=== PATIENT | female | born 1945 | race Two or more races ===

== ENCOUNTER 2016-12-06 07:22 | Inpatient (IN) | payer MEDICARE, BC ==
[~2016-12-06] VITALS: Ht 165.1 cm; Wt 69.9 kg
[2016-12-06] VITALS (24 sets, daily range): BP systolic 76–150; BP diastolic 47–78
[2016-12-06] MEDS ORDERED: IV NS 0.9% 1,000 ML BAG IV ONE ×2 (07:30→08:30)
--- NOTE | 2016-12-06 07:38 | NUR ---
Cleaned the patient at BS, changed the diaper and bed linen. Redness noted on sacral area.
--- NOTE | 2016-12-06 07:40 | NUR ---
[id number] FROM HOME: CHILLS, WEAKNESS, LOWER ABDOMINAL PAIN AND BACK PAIN. NOTED NEPHROSTOMY TUBE, COLOSTOMY BAG, URBAN PICC LINE. SON AT BS. MD AT BS FOR EVAL. NOTED TACHY. ON DIAPER NOTED SOILED, PT CLEANED AND CHANGED. SAFETY AND COMFORT MEASURES PROVIDED. WILL MONITOR.
--- NOTE | 2016-12-06 07:45 | NUR ---
UNABLE TOP DRAW BLOOD FROM PICC LINE- NOTED 2 PORTS. LAB TECHS AT FOR BLOOD DRAW. URINE SAMPLE OBTAINED FROM NEPHROSTOMY TUBE. XRAY DONE. MEDICATED ORDERED.
[2016-12-06] MEDS ORDERED: ENAL20TA PO (08:23)
[2016-12-06] MEDS ORDERED: ATOR40TA PO (08:23)
[2016-12-06] MEDS ORDERED: ATEN25TA PO (08:23)
[2016-12-06] MEDS ORDERED: SERT50TA PO (08:23)
[2016-12-06 08:28] LABS: HEMATOCRIT 32 % (33-45); HEMOGLOBIN 10.5 g/dL (11.5-14.8); LYMPHOCYTES # (AUTO) 0.5 /CMM (0.8-4.8); MEAN CORPUSCULAR HEMOGLOBIN 27 PG (26.0-33.0); MEAN CORPUSCULAR HGB CONC 33 g/dl (31.0-36.0); MEAN CORPUSCULAR VOLUME 82 fL (82-100); MONOCYTES # (AUTO) 0.9 /CMM (0.1-1.30); MONOCYTES % (AUTO) 3.4 % (2.0-12.0); NEUTROPHILS # (AUTO) 24.6 /CMM (1.8-8.9); NEUTROPHILS % (AUTO) 94.6 % (43.0-81.0); PLATELET COUNT (AUTO) 331 /CMM (150-450); RDW COEFFICIENT OF VARIATION 16.8 (11.5-15.0); RED BLOOD CELL COUNT(AUTO) 3.84 MIL/uL (4.0-5.2)
[2016-12-06] MEDS ORDERED: LEVOFLOXACIN 750 MG /D5W 150ML 150 ML IV ONE ×2 (08:30→08:34)
[2016-12-06 08:35] LABS: APPEARANCE,URINE TURBID (CLEAR); BILIRUBIN,URINE NEGATIVE (NEGATIVE); BLOOD, URINE 3+ Ery/uL (NEGATIVE); COLOR,URINE YELLOW (YELLOW); KETONES,URINE NEGATIVE (NEGATIVE); LEUKOCYTE ESTERASE ,URINE 3+ (NEGATIVE); NITRITE, URINE NEGATIVE (NEGATIVE); PH,URINE 5.5 (5.0-8.0); PROTEIN,URINE 2+ mg/dl (NEGATIVE); UGLUCOSE NEGATIVE (NEGATIVE); UROBILINOGEN,URINE 0.2 EU/dL (0.2)
[2016-12-06 08:37] LABS: CALCIUM, SERUM 9.8 mg/dL (8.5-10.1); CARBON DIOXIDE 18 mmol/L (21-32); CHLORIDE 98 mmol/L (98-107); CREATININE 1.3 mg/dL (0.6-1.3); GLUCOSE 194 mg/dL (74-106); POTASSIUM 4.2 mmol/L (3.5-5.1); SODIUM SERUM 130 mmol/L (136-145); UREA NITROGEN, BLOOD 55 mg/dL (7-18)
[2016-12-06 08:42] LABS: ALANINE AMINOTRANSFERASE 159 U/L (12-78); ALBUMIN 2.1 g/dL (3.4-5.0); ALKALINE PHOSPHATASE 308 U/L (46-116); ASPARTATE AMINOTRANSFERASE 75 U/L (15-37); BILIRUBIN,DIRECT 0.4 mg/dL (0.0-0.2); BILIRUBIN,TOTAL 1.2 mg/dL (0.2-1.0); TOTAL PROTEIN, SERUM 7.4 g/dL (6.4-8.2)
--- NOTE | 2016-12-06 08:42 | NUR ---
panel on-call paged
[2016-12-06 08:45] LABS: TROPONIN I 0.023 ng/mL (0.00-0.056)
[2016-12-06 08:50] LABS: INR 0.99 (0.87-1.13); PROTHROMBIN TIME 10.3 SECS (9.5-12.7)
[2016-12-06 08:52] LABS: BACTERIA,URINE Few /HPF (None Seen); RBC,URINE TOO NUMEROUS TO COUN /HPF (0-2); SQUAMOUS EPITHELIAL CELL,UR Few /HPF (None Seen); WBC,URINE TOO NUMEROUS TO COUN /HPF (0-3)
[2016-12-06] MEDS ORDERED: VANCOMYCIN 1 GM in IV D5W 250 ML IV ONE (09:00)
[2016-12-06] MEDS ORDERED: GENTAMICIN 80 MG in IV D5W 50 ML IV ONE (09:00)
[2016-12-06] MEDS ORDERED: NOREPINEPHRINE 8 MG in IV D5W 500 ML IV ONE (09:00)
[2016-12-06 09:06] LABS: BAND % (MANUAL) 5 % (0.0-5.0); LYMPHOCYTES % (MANUAL) 4 % (16-48); MONOCYTES % (MANUAL) 3 % (0-11.0); NEUTROPHILS % (MANUAL) 88 (42-76)
--- NOTE | 2016-12-06 09:15 | NUR ---
ORDERS CARRIED OUT. FAMILY AT BS AND UPDATED WITH POC.
[2016-12-06] MEDS ORDERED: MORPHINE SULFATE INJ 2 MG/ML DISP.SYRIN ONE (10:26)
[2016-12-06] MEDS ORDERED: MORPHINE SULFATE INJ 2 MG/ML DISP.SYRIN IV ONE (10:30)
--- NOTE | 2016-12-06 10:44 | NUR ---
REPORT GIVEN TO BEVERLEY KENT FOR ICU 252
--- NOTE | 2016-12-06 11:45 | NUR ---
icu initial note received report from sommer rosen, pt was received a/o x4, able to make needs known, able to follow commands, pt was placed on bedside monitor showing sr 70's, pt is on ra, sating well, no s/s of resp.distress or sob noted at this time, pt has sae picc line that she came with, flushing well, running levo @7mcg/min, rfa #18g,sl, c/d/i/patent, flushing well, no s/s of infection/ infiltration noted at this time, pt has colostomy, bag changed, pt has lfet nephrotomy, dressing changes, draining milky urine, pt is noted with multiple skin issues, photos taken and in chart, all orders put in, pt verbal that she wants to be full code, son paulino kim is dpoa, , all safety measures in place at all times, call light within easy reach, will monitor pt closely for changes.
[2016-12-06] MEDS ORDERED: Z GUARD REMEDY 4 OZ OINT TP PRN (12:30)
[2016-12-06] MEDS ORDERED: IV NS 0.9% 1,000 ML IV PRN ×2 (12:56→13:00)
--- NOTE | 2016-12-06 12:56 | NUR ---
icu note informed alma espitia pt is on floor, awaiting orders
[2016-12-06] MEDS ORDERED: ACETAMINOPHEN 325 MG TABLET PO PRN (13:00)
[2016-12-06] MEDS ORDERED: NOREPINEPHRINE 8 MG in IV D5W 500 ML IV PRN (13:00)
[2016-12-06] MEDS ORDERED: ENOXAPARIN SODIUM 40 MG/0.4 ML DISP.SYRIN SQ SCH (13:00)
[2016-12-06] MEDS ORDERED: FEE PK DOSING 1 MIN EA MC ONE (13:25)
[2016-12-06] MEDS: ENOXAPARIN SODIUM 40 MG/0.4 ML DISP.SYRIN SQ SCH (13:38)
[2016-12-06] MEDS: MORPHINE SULFATE INJ 2 MG/ML DISP.SYRIN IV PRN ×2 (13:38→22:40)
--- NOTE | 2016-12-06 13:44 | NUR ---
icu note alma espitia at bedside, told to call son paulino phone number given, all new orders received, all questions and concerns answered
--- NOTE | 2016-12-06 13:52 | NUR ---
icu note called alma espitia for clarification on levo order, waiting for call back
[2016-12-06 14:06] LABS: GAMMA GLUTAMYL TRANSFERASE 154 U/L (5-85)
[2016-12-06] MEDS: MEROPENEM 1 G in IV NS 0.9% 100 ML IV SCH (14:14)
--- NOTE | 2016-12-06 14:47 | NUR ---
ICU NOTE SPOKE WITH DURGA SON, PT IS ON TPN, WILL BRING IN LABEL, YONIS AVERY AWARE, ALL ORDERS ACK AND CARRIED OUT
[2016-12-06] MEDS ORDERED: TPN/PPN PER PHARMACY IV PRN (15:30)
[2016-12-06] MEDS: IV NS 0.9% 1,000 ML IV PRN (16:21)
[2016-12-06] MEDS ORDERED: LORAZEPAM INJ 2 MG/ML VIAL IV PRN (17:00)
[2016-12-06] MEDS ORDERED: INSULIN REGULAR, HUMAN 100 UNIT/ML 3 ML VIAL SQ PRN (17:30)
[2016-12-06] MEDS ORDERED: DEXTROSE 50%-WATER 50 ML DISP.SYRIN IV PRN (17:30)
[2016-12-06] MEDS: BLOOD SUGAR DIAGNOSTIC 1 EACH STRIP IN SCH ×2 (17:49→23:15)
[2016-12-06 17:54] LABS: CALCIUM, SERUM 8.2 mg/dL (8.5-10.1); CREATININE 1.2 mg/dL (0.6-1.3); POTASSIUM 3.6 mmol/L (3.5-5.1)
--- NOTE | 2016-12-06 17:54 | NUR ---
ICU NOTE SON BROUGHT TPN, NOTIFIED PHARMACY, [facility] PLACED, PT KEPT CLEAN AND DRY
[2016-12-06 17:58] LABS: MAGNESIUM 1.5 mg/dL (1.8-2.4); PHOSPHORUS 3.5 mg/dL (2.5-4.9)
[2016-12-06] MEDS ORDERED: TPN BAG #1 IV SCH ×7 (18:30)
[2016-12-06] MEDS ORDERED: FEE TPN 1 MIN EA MC ONE (18:32)
--- NOTE | 2016-12-06 18:46 | NUR ---
icu note received call from pharmacy about iv fluids, accu and tpn, will endorse maintenance technician 2nd shift, start tpn @ 50m/hr, decrease ns to 25ml/hr, check blood sugar 4 hrs after tpn started, informed them of mag 1.5, mag will be added to tpn
[2016-12-06] MEDS: ATENOLOL 25 MG TABLET PO SCH (21:00)
[2016-12-06] MEDS: ENALAPRIL MALEATE (10 MG) 10 MG TABLET PO SCH (21:00)
[2016-12-06] MEDS ORDERED: ZOLPIDEM TARTRATE 5 MG TABLET PO PRN (22:00)
--- NOTE | 2016-12-06 22:40 | NUR ---
PRODUCT SAFETY CONSULTANT DF PT MEDICATED WITH MORPHINE 2MG IVP PRN FOR GENERALIZED PAIN 2ND MED HX OF CA. VSS. A/OX4. FAMILY AT BEDSIDE. PT/FAMILY VERBALIZE GOOD UNDERSTANDING REGARDING POC.
[2016-12-06] MEDS ORDERED: BLOOD SUGAR DIAGNOSTIC 1 EACH STRIP IN ONE (23:00)
[2016-12-07] VITALS (32 sets, daily range): BP systolic 84–140; BP diastolic 49–81
[2016-12-07] MEDS: VANCOMYCIN 0.75 GM in IV D5W 250 ML IV SCH ×2 (02:10→20:20)
[2016-12-07] MEDS: MEROPENEM 1 G in IV NS 0.9% 100 ML IV SCH ×2 (02:10→14:05)
[2016-12-07 05:03] LABS: BASOPHILS % (AUTO) 0.1 % (0.0-2.0); EOSINOPHILS % (AUTO) 0.3 % (0.0-6.0); HEMATOCRIT 26 % (33-45); HEMOGLOBIN 8.2 g/dL (11.5-14.8); LYMPHOCYTES # (AUTO) 0.8 /CMM (0.8-4.8); LYMPHOCYTES % (AUTO) 5.8 % (20.0-44.0); MEAN CORPUSCULAR HEMOGLOBIN 27 PG (26.0-33.0); MEAN CORPUSCULAR HGB CONC 32 g/dl (31.0-36.0); MEAN CORPUSCULAR VOLUME 83 fL (82-100); NEUTROPHILS # (AUTO) 12.3 /CMM (1.8-8.9); NEUTROPHILS % (AUTO) 86.8 % (43.0-81.0); PLATELET COUNT (AUTO) 249 /CMM (150-450); RDW COEFFICIENT OF VARIATION 17.4 (11.5-15.0); RED BLOOD CELL COUNT(AUTO) 3.09 MIL/uL (4.0-5.2); WHITE BLOOD COUNT (AUTO) 14.2 K/uL (4.3-11.0)
[2016-12-07 05:27] LABS: THYROID STIMULATING HORMONE 4.339 uIU/mL (0.358-3.74)
[2016-12-07 05:29] LABS: ALBUMIN 1.6 g/dL (3.4-5.0); BILIRUBIN,TOTAL 0.5 mg/dL (0.2-1.0); CREATININE 1.1 mg/dL (0.6-1.3); MAGNESIUM 1.8 mg/dL (1.8-2.4); POTASSIUM 3.3 mmol/L (3.5-5.1); TOTAL PROTEIN, SERUM 5.7 g/dL (6.4-8.2)
[2016-12-07] MEDS: BLOOD SUGAR DIAGNOSTIC 1 EACH STRIP IN SCH ×3 (06:00→17:51)
[2016-12-07] MEDS: MORPHINE SULFATE INJ 2 MG/ML DISP.SYRIN IV PRN ×2 (06:06→17:43)
--- NOTE | 2016-12-07 06:06 | NUR ---
FREELANCE WRITER DF PT C/O GENERALIZED PAIN 5/10 REQUESTING MORPHINE 2MG IVP. PT REFUSED AM CARE.LINEN CLEAN AND DRY. PT WILL ADVISE STAFF WHEN READY FOR AM CARE.
--- NOTE | 2016-12-07 06:07 | NUR ---
EQUIPMENT RECORDS SUPERVISOR DF PT BP OF 108/69 PT WAS 1 MCG OF LEVOPHED. LEVOPHED TITRATED OFF, WILL MONITOR.
--- NOTE | 2016-12-07 07:45 | NUR ---
ICU/RN - Initial Notes Received pt in bed awake and alert x3. States relief of abdominal pain, as PM nurse gave Morphine 2mg IVP. On room air, with no acute respiratory distress. SR 65 on tele monitor. PICC line noted on left upper arm, with TPN and IVF infusing well. Pt currently off Levophed at this time, will monitor BP. Safety and comfort measures in place. Will continue to monitor pt closely.
[2016-12-07] MEDS: ATENOLOL 25 MG TABLET PO SCH (08:06)
[2016-12-07] MEDS: ENALAPRIL MALEATE (10 MG) 10 MG TABLET PO SCH (08:06)
[2016-12-07] MEDS: ATORVASTATIN 40 MG TABLET PO SCH ×2 (08:16→08:26)
[2016-12-07] MEDS: SERTRALINE HCL 50 MG TABLET PO SCH ×2 (08:16→08:26)
[2016-12-07] MEDS: ENOXAPARIN SODIUM 40 MG/0.4 ML DISP.SYRIN SQ SCH (08:17)
--- NOTE | 2016-12-07 08:30 | NUR ---
ICU/RN - Notes PO medications not administered as pt unable to take PO. Pt states "I haven't been able to take pills for weeks, I don't take them anymore." Will notify and verify with MD regarding PO medications.
--- NOTE | 2016-12-07 08:58 | NUR ---
WOUND CARE CONSULT: PT PRESENTS WITH STAGE 2 ULCER TO SACRUM AND RASH TO RT SIDE OF BACK AND HIP, PRESENT ON ADMISSION. NEPHROSTOMY TUBE NOTED. DEFER TO MD FOR RASH AND NEPHROSTOMY TUBE. PT ON FIRST STEP MATTRESS. ALL SKIN PROTECTION AND WOUND RECOMMENDATIONS DISCUSSED WITH NURSING STAFF. PT IS INCONTINENT. SKIN TO BE KEPT CLEAN AND DRY. ALL SKIN PROTECTION MEASURES IN PLACE. WILL SEE PRN. MD IN AGREEMENT WITH PLAN OF CARE. Addendum: 12/07/16 at 0900 by JEANETTE EDEN WNDNU Amended: Links added.
[2016-12-07] MEDS ORDERED: HYDROGEL DRESSING 90 GM TUBE TP PRN (09:00)
[2016-12-07] MEDS: HYDROGEL DRESSING 90 GM TUBE TP SCH (09:52)
[2016-12-07] MEDS ORDERED: VANCOMYCIN 0.75 GM in IV D5W 250 ML IV SCH (10:00)
[2016-12-07] MEDS ORDERED: MAGNESIUM IV SCH ×5 (12:00)
[2016-12-07] MEDS ORDERED: TPN ADDITIVES IV SCH ×10 (12:00)
[2016-12-07] MEDS ORDERED: SODIUM CHLORIDE IV SCH ×5 (12:00)
[2016-12-07] MEDS ORDERED: TPN IV SCH ×5 (12:00)
[2016-12-07] MEDS ORDERED: [UNRECOGNIZED DRUG - OTHER] IV SCH ×5 (12:00)
--- NOTE | 2016-12-07 12:00 | NUR ---
ICU/RN - Notes Alvarez catheter inserted as ordered with miguelina colored cloudy urine draining to gravity.
[2016-12-07] MEDS: HYDROCORTISONE 1% CREAM 28.35 GM TUBE TP SCH (16:07)
[2016-12-07] MEDS: IV NS 0.9% 1,000 ML IV PRN (16:14)
[2016-12-07] MEDS ORDERED: ACETAMINOPHEN 650 MG/SUPP.RECT RC PRN (16:30)
--- NOTE | 2016-12-07 17:25 | NUR ---
ICU/RN - Notes Pt noted with what seems like watery stool coming out of urethra. Per patient, this is something unusual since pt has colostomy for stool drainage. Dr Gutierrez made aware that stool found coming out of urethra and possible fistula as pt has history of abdominal fistulas. Dr Gutierrez also made aware of hematuria and cloudy foul smelling urine. Pt pending Surgery evaluation. Dr Matt Parmar called and made aware and will come see patient in the AM per MD.
--- NOTE | 2016-12-07 17:43 | NUR ---
ICU/RN - Notes Pt complains of abdominal pain on pain scale 8 out of 10. Administered Morphine 2mg IVP as ordered for PRN pain. Will reassess pain accordingly.
--- NOTE | 2016-12-07 19:00 | NUR ---
ICU/RN - Notes Pt states relief of abdominal pain. Urine collected from becerril catheter and sent to lab. All needs met and attended. Endorsed to night nurse for continuity of care.
--- NOTE | 2016-12-07 20:00 | NUR ---
MULTI CARE TECHNICIAN - Received pt in bed awake and alert x3. On room air, with no acute respiratory distress. SR on tele monitor. PICC line noted on left upper arm, with TPN and IVF infusing well. Pt currently off Levophed at this time, will monitor BP. Safety and comfort measures in place. Will continue to monitor pt closely.
[2016-12-07 21:36] LABS: APPEARANCE,URINE CLOUDY (CLEAR); BILIRUBIN,URINE NEGATIVE (NEGATIVE); BLOOD, URINE 3+ Ery/uL (NEGATIVE); COLOR,URINE AMBER (YELLOW); KETONES,URINE NEGATIVE (NEGATIVE); LEUKOCYTE ESTERASE ,URINE 3+ (NEGATIVE); NITRITE, URINE NEGATIVE (NEGATIVE); PROTEIN,URINE 2+ mg/dl (NEGATIVE); UGLUCOSE NEGATIVE (NEGATIVE); UROBILINOGEN,URINE 0.2 EU/dL (0.2)
[2016-12-07 21:53] LABS: BACTERIA,URINE Few /HPF (None Seen); RBC,URINE 51-80 /HPF (0-2); SQUAMOUS EPITHELIAL CELL,UR Few /HPF (None Seen); WBC,URINE 21-50 /HPF (0-3)
[2016-12-08] VITALS (36 sets, daily range): BP systolic 86–142; BP diastolic 47–76
[2016-12-08] MEDS: BLOOD SUGAR DIAGNOSTIC 1 EACH STRIP IN SCH ×5 (00:26→23:11)
[2016-12-08] MEDS: ONDANSETRON HCL/PF 4 MG/2 ML VIAL IVP PRN (00:28)
[2016-12-08] MEDS ORDERED: TPN BAG #3 IV SCH ×7 (01:00)
[2016-12-08] MEDS: MEROPENEM 1 G in IV NS 0.9% 100 ML IV SCH ×2 (02:01→14:46)
[2016-12-08 04:57] LABS: CALCIUM, SERUM 9.5 mg/dL (8.5-10.1); MAGNESIUM 1.9 mg/dL (1.8-2.4); PHOSPHORUS 3.1 mg/dL (2.5-4.9); POTASSIUM 3.8 mmol/L (3.5-5.1)
[2016-12-08 05:08] LABS: BASOPHILS % (AUTO) 0.3 % (0.0-2.0); EOSINOPHILS # (AUTO) 0.1 /CMM (0.0-0.7); HEMATOCRIT 26 % (33-45); HEMOGLOBIN 8.3 g/dL (11.5-14.8); LYMPHOCYTES # (AUTO) 0.7 /CMM (0.8-4.8); LYMPHOCYTES % (AUTO) 8.5 % (20.0-44.0); MEAN CORPUSCULAR HEMOGLOBIN 27 PG (26.0-33.0); MEAN CORPUSCULAR HGB CONC 32 g/dl (31.0-36.0); MEAN CORPUSCULAR VOLUME 84 fL (82-100); MONOCYTES # (AUTO) 0.6 /CMM (0.1-1.30); NEUTROPHILS # (AUTO) 7.3 /CMM (1.8-8.9); NEUTROPHILS % (AUTO) 83.2 % (43.0-81.0); PLATELET COUNT (AUTO) 254 /CMM (150-450); RDW COEFFICIENT OF VARIATION 17.7 (11.5-15.0); RED BLOOD CELL COUNT(AUTO) 3.06 MIL/uL (4.0-5.2); WHITE BLOOD COUNT (AUTO) 8.8 K/uL (4.3-11.0)
--- NOTE | 2016-12-08 06:20 | NUR ---
PT HAD LARGE BM, FROM WHAT APPEARS TO BE VAGINA, NO STOOL FROM COLOSTOMY AND STOOL WAS ON TOP OF VAGINA, AND URINE SOAKED BED, POSSIBLY FROM LEFT NEPHROSTOMY
[2016-12-08] MEDS: MORPHINE SULFATE INJ 2 MG/ML DISP.SYRIN IV PRN ×2 (07:20→19:38)
--- NOTE | 2016-12-08 08:00 | NUR ---
ICU/RN INITIAL NOTES,AM RECEIVED REPORT FROM NIGHT NURSE. PT ALERT, AWAKE, ORIENTED. FOLLOWS COMMANDS. ON ROOM AIR, NO DISTRESS NOTED. SINUS ON TELE. VSS. PT AWAITING SURGERY CONSULT, WILL FOLLOW UP. NOBLES IN PLACE DRAINING YELLOW URINE. PT ALSO HAS COLOSTOMY, INTACT, CLEAN. LEFT NEPHROSTOMY IN PLACE, SOME REDNESS AROUND IT NOTED, MD NOTIFIED. ALL NEEDS WILL BE MET, SAFETY MEASURES TAKEN, BED IN LOW POSITION, SIDE RAILS UP, CALL LIGHT WITHIN REACH. WILL CONTINUE CARE.
[2016-12-08] MEDS: HYDROCORTISONE 1% CREAM 28.35 GM TUBE TP SCH ×2 (09:02→17:25)
[2016-12-08] MEDS: HYDROGEL DRESSING 90 GM TUBE TP SCH (09:02)
[2016-12-08] MEDS: ENOXAPARIN SODIUM 40 MG/0.4 ML DISP.SYRIN SQ SCH (09:04)
--- NOTE | 2016-12-08 10:30 | NUR ---
ICU/RN: PT SEEN BY PHYSICAL THERAPY. PT MOD ASSIST, ABLE TO SIT UP IN BED, UNABLE TO DUE MORE DUE TO DISCOMFORT FROM NOBLES AND VAGINAL IRRITATION. WILL CONTINUE TO BE SEEN BY PT.
[2016-12-08] MEDS ORDERED: TPN BAG #4 IV SCH ×6 (11:00)
[2016-12-08] MEDS ORDERED: TPN ABG IV PRN ×8 (11:00)
--- NOTE | 2016-12-08 12:00 | NUR ---
ICU/RN: MD ROUNDS PT SEEN AND ASSESSED BY DR.SAM KOROMA. CONCERNS ADDRESSED, CONSULT ORDERED FOR SURGERY TO SEE PT AND FOLLOW UP. PT CONTINUES TO BE ON TPN AND LIPIDS WILL BE ADDED.
[2016-12-08] MEDS: VANCOMYCIN 0.75 GM in IV D5W 250 ML IV SCH ×2 (12:33→23:12)
[2016-12-08] MEDS: FAT EMULSION 20% 500 ML in PREMIX 1 EA IV SCH (14:47)
[2016-12-08] MEDS: PANTOPRAZOLE 40 MG VIAL IV SCH (18:20)
--- NOTE | 2016-12-08 18:20 | NUR ---
ICU/RN CONSULTS PT SEEN AND ASSESSED BY DR. NG, ID, NO NEW ORDERS AT THIS TIME. PT SEEN AND ASSESSED BY LINN SURGERY SPREADER OPERATOR AUTOMATIC, ORDERS RECEIVED FOR CT ABD AND PELVIS WITH CONTRAST VIA IV/RECTUM/OSTOMY. INFORMED HER NO OUTPUT FROM OSTOMY AND THAT PT HAS FECAL MATTER COMING FORM VAGINA. FURTHER STUDIES WILL BE DONE NEEDED. WILL CONTINUE CARE.
--- NOTE | 2016-12-08 18:56 | NUR ---
ICU/RN ENDING NOTES,AM REPORT WILL BE ENDORSED TO NIGHT NURSE FOR CONTINUATION OF CARE. ALL NEEDS MET, SAFETY MEASURES TAKEN. PT CONTINUES TO BE ON ROOM AIR, NO DISTRESS OR SOB NOTED. SINUS ONT TELE. TPN/LIPIDS /IV FLUIDS INFUSING ORDERED. PICC LINE PATENT AND INTACT, NO S/S OF INFECTION OR INFILTRATION NOTED. ALL NEEDS MET, SAFETY MEASURES TAKEN, BED IN LOW POSITION, SIDE RIALS UP, CALL LIGHT WITHIN REACH. FAMILY AT BEDSIDE. BED BATH GIVEN, LINENS CHANGED, TURNED AND REPOSITIONED.
--- NOTE | 2016-12-08 19:26 | NUR ---
ICU/RN: CONSENT IN CHART, PT TO BE NPO AFTER 399, NO ICE CHIPS
--- NOTE | 2016-12-08 19:30 | NUR ---
CAT SKINNER: RECEIVED PT A/O X3. ON ROOM AIR WT NO LABORED BREATHING NOTED. C/O ABDOMINAL PAIN (10/07). WILL ADMINISTER MORPHINE ORDERED. SR ON LASTER HAND WT OCCASIONAL PVCs AND PACs AND HR IN THE 90s. AFEBRILE. BP WNL. LEFT SIDE NEPHROSTOMY AND F/C PATENT AND INTACT DRAINING GERARDO COLORED URINE. COLOSTOMY INTACT AND PATENT WT NO STOOL. NO FECAL LEAK ON VAGINA AT THIS TIME. REPOSITIONED FOR COMFORT. SAFETY PRECAUTION NOTED. CALL LIGHT WITHIN REACH.
[2016-12-08] MEDS: IV NS 0.9% 1,000 ML IV PRN (19:51)
--- NOTE | 2016-12-08 20:10 | NUR ---
MAINTENANCE SUPERVISOR ELECTRICAL: REASSESSED PAIN LEVEL AFTER MORPHINE WAS GIVEN WT GOOD EFFECT (0/10). WILL CONTINUE TO MONITOR.
[2016-12-09] VITALS (20 sets, daily range): BP systolic 90–149; BP diastolic 54–95
--- NOTE | 2016-12-09 00:30 | NUR ---
REINFORCING STEEL WORKER WIRE MESH: EYES CLOSED, ABLE TO OPEN EYES WHEN TOUCHED OR CALLED BY NAME. NO ACUTE DISTRESS, NO C/O PAIN. CONTINUE ON TPN AT 75ML/HR, LIPID AT 20ML/HR AND NS AT 25ML/HR WT NO COMPLICATIONS NOTED ON URBAN PICC LINE. VS WITHIN HER BASELINE. WILL CONTINUE TO MONITOR.
[2016-12-09] MEDS: MEROPENEM 1 G in IV NS 0.9% 100 ML IV SCH ×2 (02:06→14:13)
[2016-12-09] MEDS: MORPHINE SULFATE INJ 2 MG/ML DISP.SYRIN IV PRN ×3 (04:39→21:20)
[2016-12-09 05:48] LABS: CREATININE 0.9 mg/dL (0.6-1.3); MAGNESIUM 1.7 mg/dL (1.8-2.4); PHOSPHORUS 2.8 mg/dL (2.5-4.9)
[2016-12-09] MEDS: BLOOD SUGAR DIAGNOSTIC 1 EACH STRIP IN SCH ×4 (06:11→23:39)
--- NOTE | 2016-12-09 06:15 | NUR ---
CHUCKING LATHE OPERATOR: NO SIGNIFICANT JESSICA DURING THE SHIFT. REMAINED A/O X 3. STARTED NPO WITHOUT CHIPS AT [address] WT CONTRAST TODAY. BED BATH GIVEN AND TOLERATED FAIRLY. STILL WT GREENISH ONTIVEROS COLORED STOOL LEAK FROM VAGINA IN MINIMAL AMT. GOOD RADHA CARE RENDERED. BLOOD URTZX=450 WT INSULIN COVERAGE ORDERED. VS WITHIN HER BASELINE. SAFETY PRECAUTION NOTED AT ALL TIMES.
--- NOTE | 2016-12-09 07:45 | NUR ---
ICU/RN - Initial Notes Received pt in bed awake and alert x3. Complains of abdominal discomfort, refuses pain medication at this time. On room air, with no acute respiratory distress. SR 65 on tele monitor. PICC line noted on left upper arm, with TPN, Lipids and IVF infusing well. Alvarez catheter draining urine to gravity. Nephrostomy to left flank draining urine to gravity. Left lower quadrant colostomy , no stool. Safety and comfort measures in place. Will continue to monitor pt closely.
[2016-12-09 08:05] LABS: EOSINOPHILS # (AUTO) 0.1 /CMM (0.0-0.7); EOSINOPHILS % (AUTO) 1.5 % (0.0-6.0); HEMATOCRIT 27 % (33-45); LYMPHOCYTES # (AUTO) 0.7 /CMM (0.8-4.8); LYMPHOCYTES % (AUTO) 8.1 % (20.0-44.0); MEAN CORPUSCULAR HEMOGLOBIN 28 PG (26.0-33.0); MEAN CORPUSCULAR HGB CONC 34 g/dl (31.0-36.0); MEAN CORPUSCULAR VOLUME 82 fL (82-100); MONOCYTES # (AUTO) 0.6 /CMM (0.1-1.30); MONOCYTES % (AUTO) 6.4 % (2.0-12.0); NEUTROPHILS # (AUTO) 7.6 /CMM (1.8-8.9); PLATELET COUNT (AUTO) 282 /CMM (150-450); RDW COEFFICIENT OF VARIATION 16.8 (11.5-15.0); RED BLOOD CELL COUNT(AUTO) 3.24 MIL/uL (4.0-5.2); WHITE BLOOD COUNT (AUTO) 9.1 K/uL (4.3-11.0)
--- NOTE | 2016-12-09 08:42 | NUR ---
SOFT SHOE DANCER RN SPOKE TO DR. ESPINOZA'S INDUSTRIAL TECH INSTRUCTOR LINN. PER TRAVON PATIENT TO RECEIVE IV CONTRAST, CONTRAST THROUGH THE COLOSTOMY, AND THROUGH RECTUM AT THE SAME TIME DURING CT SCAN IN ORDER TO VISUALIZE THE FISTULA. RN CLARIFIED THE CT ORDER TO THE PL SQL PROGRAMMER. PER PL SQL PROGRAMMER, RADIOLOGIST WANTS TO SPEAK TO GENERAL SURGERY INDUSTRIAL TECH INSTRUCTOR TO CLARIFY THE CT ORDER WITH CONTRAST. RN PROVIDED THE PL SQL PROGRAMMER WITH CONTACT INFORMATION FOR INDUSTRIAL TECH INSTRUCTOR.
[2016-12-09] MEDS: HYDROGEL DRESSING 90 GM TUBE TP SCH (09:04)
[2016-12-09] MEDS: ENOXAPARIN SODIUM 40 MG/0.4 ML DISP.SYRIN SQ SCH (09:05)
[2016-12-09] MEDS: HYDROCORTISONE 1% CREAM 28.35 GM TUBE TP SCH ×2 (09:28→17:31)
[2016-12-09] MEDS ORDERED: MAGNESIUM IV SCH ×8 (10:00)
[2016-12-09] MEDS ORDERED: SODIUM CHLORIDE IV SCH ×8 (10:00)
[2016-12-09] MEDS ORDERED: POTASSIUM ACETATE IV SCH ×8 (10:00)
[2016-12-09] MEDS ORDERED: TPN BAG #6 IV PRN ×6 (10:00)
[2016-12-09] MEDS ORDERED: [UNRECOGNIZED DRUG - OTHER] IV SCH ×8 (10:00)
[2016-12-09] MEDS ORDERED: TPN BAG #7 IV PRN ×8 (10:00)
[2016-12-09] MEDS ORDERED: TPN ADDITIVES IV SCH ×8 (10:00)
[2016-12-09] MEDS ORDERED: TPN BAG #7 IV SCH ×8 (10:00)
[2016-12-09] MEDS ORDERED: DIATR MEGLU/DIATRIZOATE SODIUM 30 ML BOTTLE (GASTROGRAPHIN) ONE (10:06)
[2016-12-09] MEDS: Magnesium 1GM/D5W 100ML PREMIX 100 ML IV SCH ×2 (10:12→11:09)
[2016-12-09] MEDS: POTASSIUM CL. PREMIX PERIPHER. 50 ML IV SCH ×4 (10:12→13:12)
--- NOTE | 2016-12-09 11:05 | NUR ---
GAMBLING MONITOR RN SPOKE TO PATIENT AND FAMILY. PER PATIENT AND FAMILY THEY NEED FURTHER CLARIFICATION OF ABDOMINAL CT WITH CONTRAST ESPECIALLY REGARDING ADMINISTRATION OF PO CONTRAST THROUGH COLOSTOMY. PATIENT AND FAMILY REQUESTED TO SPEAK TO THE PRIMER INSERTING MACHINE OPERATOR PRIOR TO CT SCAN. RN PAGED PRIMER INSERTING MACHINE OPERATOR THROUGH EXCHANGE TO INFORM PATIENT AND FAMILY REQUEST FOR FURTHER CLARIFICATION. RN CALLED SURGERY PRIMER INSERTING MACHINE OPERATOR TRAVON THROUGH EXCHANGE.
--- NOTE | 2016-12-09 11:57 | NUR ---
VEST FINISHER RN PAGED DR. ESPINOZA'S SUPPLY TECHNICIAN TRAVON. RN CLARIFIED WITH TRAVON THAT PO CONTRAST TO BE GIVEN THROUGH COLOSTOMY BAG AND IF NOT ABSORBED PO CONTRAST TO BE INJECTED TO THE OSTOMY USING A SYRINGE. RN ATTEMPTED PLACING PO CONTRAST IN THE COLOSTOMY BAG FOR 5 MIN IN ORDER FOR IT TO BE ABSORBED. NO CONTRAST ABSORBED THROUGH THE COLOSTOMY. RN THEN ATTEMPTED TO INJECT THE CONTRAST USING A GT SYRINGE. UNABLE TO INJECT. CALLED TRAVON AGAIN AND INFORMED THE EVENT. RECEIVED ORDERS TO INSERT A NOBLES CATH TO THE SITE AND GENTLY FLUSH THE CONTRAST.
[2016-12-09] MEDS: VANCOMYCIN 0.75 GM in IV D5W 250 ML IV SCH (12:00)
--- NOTE | 2016-12-09 12:51 | NUR ---
PORTER SAMPLE CASE RN INSERTED A STERILE NOBLES CATH INTO PATIENT'S COLOSTOMY 4 CM DEEP. RN INJECTED TO CONTRAST TO THE COLOSTOMY. INJECTED SOLUTION NOTED TO COME OUT OF THE COLOSTOMY IMMEDIATELY AFTER INJECTION. UNABLE TO ADVANCE THE CATHETER ANY DEEPER SINCE PATIENT NOTED TO HAVE PAIN AND DISCOMFORT. PROCEDURE STOPPED. FAMILY AND PATIENT EDUCATION PROVIDED.
--- NOTE | 2016-12-09 14:47 | NUR ---
ICU/RN - Notes Pt complains of abdominal pain on pain scale 8 out of 10. Administered Morphine 2mg IVP as ordered for PRN pain. Comfort measures rendered. Will reassess pain accordingly.
--- NOTE | 2016-12-09 14:50 | NUR ---
SOLAR PHOTOVOLTAIC CREW LEAD RN SPOKE TO TRAVON WAITE. RN INFORMED INDUSTRIAL ENGINEERING MANAGER THAT ALL INJECTED PO CONTRAST TO THE COLOSTOMY IS PUSHED BACK OUT FROM THE OSTOMY IT IS PUSHED IN. INDUSTRIAL ENGINEERING MANAGER THEN INFORMED THE RN THAT PATIENT MAY GO TO CT AND HAVE THE PROCEDURE DONE WITH ONLY IV CONTRAST.
[2016-12-09] MEDS ORDERED: IV NS 0.9% 250 ML IV ONE (14:58)
[2016-12-09] MEDS ORDERED: CT SWABBABLE VALVE TRANS SET 1 EA INFUS.SET MC ONE (14:58)
[2016-12-09] MEDS ORDERED: IOHEXOL-300 100 ML VIAL IV ONE (14:58)
--- NOTE | 2016-12-09 15:30 | NUR ---
ICU/RN - Notes Pt taken to radiology for CT abdomen/pelvis with IV contrast via ACLS protocol. Pt returned in stable condition.
[2016-12-09] MEDS: PANTOPRAZOLE 40 MG VIAL IV SCH (17:34)
--- NOTE | 2016-12-09 18:40 | NUR ---
ICU/RN - Transfer Pt transferred to Telemetry 110-1 via ACLS protocol. Report given to YOLI Pedraza for continuity of care. All belongings taken with patient.
[2016-12-09] MEDS: METRONIDAZOLE 500MG/ NS 100ML 500 MG in PREMIX 1 EA IV SCH (18:52)
--- NOTE | 2016-12-09 19:30 | NUR ---
SHOE LASTER: RECEIVED PT A/O X3. ON R/A WT NO ACUTE DISTRESS. NO C/O PAIN AT THIS TIME. URBAN PICC LINE INFUSING TPN AT 75ML/HR AND FLAGYL IV WT NO COMPLICATIONS. SR ON MONITOR WT OCCASIONAL PACs AND PVCs. F/C AND LEFT FLANK NEPHROSTOMY PATENT AND INTACT DRAINING GERARDO COLORED URINE TO GRAVITY. COLOSTOMY BAG WT NO STOOL. NO FECAL STOOL LEAKS COMING FROM VAGINA AT THIS TIME. SAFETY PRECAUTION NOTED.
[2016-12-09] MEDS ORDERED: VANCOMYCIN 0.75 GM in IV D5W 250 ML IV SCH (21:00)
[2016-12-09] MEDS: IV NS 0.9% 1,000 ML IV PRN (21:00)
[2016-12-09] MEDS: LEVOFLOXACIN 750 MG /D5W 150ML 750 MG in PREMIX 1 EA IV SCH (21:01)
[2016-12-10] VITALS: BP 129/74
--- NOTE | 2016-12-10 00:30 | NUR ---
HAND COLLATOR: LOS DONE WT WNL RESULT. NO JESSICA. NO ACUTE DISTRESS, NO C/O PAIN AT THIS TIME.
[2016-12-10] MEDS: METRONIDAZOLE 500MG/ NS 100ML 500 MG in PREMIX 1 EA IV SCH ×3 (02:30→18:38)
[2016-12-10 04:00] VITALS: BP 145/82
[2016-12-10] MEDS: BLOOD SUGAR DIAGNOSTIC 1 EACH STRIP IN SCH ×4 (05:59→23:32)
[2016-12-10] MEDS: MORPHINE SULFATE INJ 2 MG/ML DISP.SYRIN IV PRN ×4 (06:28→23:17)
[2016-12-10 06:52] LABS: CALCIUM, SERUM 8.5 mg/dL (8.5-10.1); CREATININE 0.8 mg/dL (0.6-1.3); MAGNESIUM 2.1 mg/dL (1.8-2.4); PHOSPHORUS 3.3 mg/dL (2.5-4.9); POTASSIUM 3.4 mmol/L (3.5-5.1)
--- NOTE | 2016-12-10 07:00 | NUR ---
PIECE WORKER: PAIN MEDS GIVEN REQUESTED FOR ABDOMINAL PAIN (8/10) WT GOOD EFFECT (0/10). REMAINED A/O X3. ON R/A WT NO ACUTE DISTRESS. ALL NEEDS MET.
[2016-12-10 08:00] VITALS: BP 132/69
[2016-12-10] MEDS: HYDROGEL DRESSING 90 GM TUBE TP SCH (09:00)
[2016-12-10] MEDS: HYDROCORTISONE 1% CREAM 28.35 GM TUBE TP SCH ×2 (09:00→17:00)
[2016-12-10] MEDS: ENOXAPARIN SODIUM 40 MG/0.4 ML DISP.SYRIN SQ SCH (09:28)
[2016-12-10] MEDS: POTASSIUM CL. PREMIX PERIPHER. 50 ML IV SCH ×2 (09:32→11:20)
[2016-12-10 12:00] VITALS: BP 158/76
[2016-12-10] MEDS: FAT EMULSION 20% 500 ML in PREMIX 1 EA IV SCH (13:24)
[2016-12-10] MEDS ORDERED: TPN BAG #8 IV PRN ×6 (15:30)
[2016-12-10] MEDS: PANTOPRAZOLE 40 MG VIAL IV SCH (16:00)
[2016-12-10 17:14] VITALS: BP 142/84
[2016-12-10] MEDS ORDERED: FEE PK DOSING 1 MIN EA MC ONE (17:50)
[2016-12-10] MEDS: ONDANSETRON HCL/PF 4 MG/2 ML VIAL IVP PRN (18:14)
[2016-12-10] MEDS: VANCOMYCIN 0.75 GM in IV D5W 250 ML IV SCH (18:37)
--- NOTE | 2016-12-10 19:25 | NUR ---
JEWELRY SALES REPRESENTATIVE INITIAL NOTE RECEIVED IN NO ACUTE DISTRESS OR PAIN. SON AT BEDSIDE SPEAKING TO ONCOLOGIST. PT IS ALERT X4. ON TELE WITH ST PAC AND PVCS. COLOSTOMY, NEPHROSTOMY, F/C THAT ARE CLEAN DRY AND INTACT. URBAN PICC LINE AND RFA 18G THAT ARE CLEAN DRY AND INTACT. WILL CONTINUE TO MONITOR THE PT FOR ANY CHANGES. COMFORT AND SAFETY MEASURES TO BE ENSURED.
[2016-12-10 20:00] VITALS: BP 135/79
[2016-12-10] MEDS: LEVOFLOXACIN 750 MG /D5W 150ML 750 MG in PREMIX 1 EA IV SCH (20:27)
[2016-12-11] VITALS: BP 127/73
[2016-12-11] MEDS: METRONIDAZOLE 500MG/ NS 100ML 500 MG in PREMIX 1 EA IV SCH ×2 (01:17→09:02)
[2016-12-11 04:00] VITALS: BP_SYST 132; BP_SYST 136; BP_DIAS 78; BP_DIAS 83
[2016-12-11] MEDS: BLOOD SUGAR DIAGNOSTIC 1 EACH STRIP IN SCH ×2 (05:17→11:56)
[2016-12-11] MEDS: ONDANSETRON HCL/PF 4 MG/2 ML VIAL IVP PRN ×3 (05:18→11:57)
[2016-12-11] MEDS: VANCOMYCIN 0.75 GM in IV D5W 250 ML IV SCH (05:21)
[2016-12-11 06:48] LABS: CALCIUM, SERUM 8.4 mg/dL (8.5-10.1); CREATININE 0.8 mg/dL (0.6-1.3); MAGNESIUM 1.9 mg/dL (1.8-2.4); PHOSPHORUS 3.6 mg/dL (2.5-4.9)
[2016-12-11 06:54] LABS: IRON, SERUM 28 ug/dl (50-175); TOTAL IRON BINDING CAPACITY 154 ug/dl (250-450)
[2016-12-11 07:10] LABS: POTASSIUM 3.2 mmol/L (3.5-5.1)
--- NOTE | 2016-12-11 07:30 | NUR ---
CASINO BEVERAGE SERVER INITIAL NOTE RECEIVED PT IN BED NO ACUTE DISTRESS OR PAIN. . PT IS A/O X4. ON TELE WITH ST PAC AND PVCS. COLOSTOMY, NEPHROSTOMY, F/C CDI. URBAN PICC LINE AND RFA 18G CDI . WILL CONTINUE TO MONITOR THE PT FOR ANY CHANGES. COMFORT AND SAFETY MEASURES TO BE ENSURED.
[2016-12-11] MEDS ORDERED: TPN BAG #8 IV PRN ×6 (07:32)
[2016-12-11 08:00] VITALS: BP 134/77
[2016-12-11] MEDS ORDERED: TPN BAG #10 IV PRN ×6 (08:00)
[2016-12-11] MEDS ORDERED: TPN BAG #9 IV PRN ×8 (08:00)
[2016-12-11] MEDS ORDERED: VANCOMYCIN 1 GM in IV D5W 250 ML IV SCH (08:00)
[2016-12-11 08:35] LABS: FERRITIN 326 ng/mL (8-388)
[2016-12-11] MEDS: HYDROGEL DRESSING 90 GM TUBE TP SCH (09:00)
[2016-12-11] MEDS: HYDROCORTISONE 1% CREAM 28.35 GM TUBE TP SCH (09:00)
[2016-12-11] MEDS: ENOXAPARIN SODIUM 40 MG/0.4 ML DISP.SYRIN SQ SCH (09:02)
[2016-12-11] MEDS: PANTOPRAZOLE 40 MG VIAL IV SCH (09:06)
[2016-12-11] MEDS: MORPHINE SULFATE INJ 2 MG/ML DISP.SYRIN IV PRN (09:12)
[2016-12-11 12:00] VITALS: BP 142/81
[2016-12-11] MEDS ORDERED: LEVO500T15 PO (16:17)
--- NOTE | 2016-12-11 18:16 | NUR ---
pt discharged to [facility].pt in stable condition.no s/s of distress.all belongings and discharge instructions provided to patient.
[2016-12-15 12:16] LABS: CANCER AG, 125 38.1 U/mL (0.0-38.1)
== END 2016-12-11 17:29 | DRG 871 ==
LOC: ER 07:24 → ICU 10:41 → TELE1 12-09 18:29
PROVIDERS: ADMIT Nurse Practitioner Acute Care; ATTEND Nurse Practitioner Acute Care
DX: A41.9 Sepsis, unspecified organism (principal); N17.0 Acute kidney failure with tubular necrosis; L89.151 Pressure ulcer of sacral region, stage 1; E46 Unspecified protein-calorie malnutrition; E88.09 Other disorders of plasma-protein metabolism, not elsewhere classified; C78.7 Secondary malignant neoplasm of liver and intrahepatic bile duct; D69.2 Other nonthrombocytopenic purpura; E87.2 Acidosis; E87.1 Hypo-osmolality and hyponatremia; N82.2 Fistula of vagina to small intestine; N39.0 Urinary tract infection, site not specified; I48.91 Unspecified atrial fibrillation; Z93.6 Other artificial openings of urinary tract status; E86.0 Dehydration; I10 Essential (primary) hypertension; Z90.710 Acquired absence of both cervix and uterus; B96.5 Pseudomonas (aeruginosa) (mallei) (pseudomallei) as the cause of diseases classified elsewhere; D63.8 Anemia in other chronic diseases classified elsewhere; Z85.42 Personal history of malignant neoplasm of other parts of uterus; Z92.21 Personal history of antineoplastic chemotherapy; Z93.3 Colostomy status; R73.9 Hyperglycemia, unspecified; R74.0 Nonspecific elevation of levels of transaminase and lactic acid dehydrogenase [LDH]; R74.8 Abnormal levels of other serum enzymes; R31.9 Hematuria, unspecified; R65.20 Severe sepsis without septic shock; B95.2 Enterococcus as the cause of diseases classified elsewhere; Z85.038 Personal history of other malignant neoplasm of large intestine; L89.621 Pressure ulcer of left heel, stage 1; L89.611 Pressure ulcer of right heel, stage 1; R21 Rash and other nonspecific skin eruption; E78.5 Hyperlipidemia, unspecified; Z79.899 Other long term (current) drug therapy; Z85.51 Personal history of malignant neoplasm of bladder; Z68.25 Body mass index [BMI] 25.0-25.9, adult; Z92.3 Personal history of irradiation
CPT/HCPCS: 36415; 71010-TC; 80048-TC; 80053-TC; 80061-TC; 80076-TC; 80202-TC; 81000-TC; 82105; 82378; 82728-TC; 82746; 82962-TC; 82977-TC; 83540-TC; 83605-TC; 83615-TC; 83735-TC; 84100-TC; 84443-TC; 84478-TC; 84484-TC; 85025-TC; 85730-TC; 86301; 86304; 86850-TC; 87040-TC; 87081-TC; 87086-TC; 87186-TC; 93307-TC; A4216; A4606; A6248; A6402; A9563; C1894; C9113; J1580; J1650; J1815; J1956; J2060; J2185; J2270; J2405; J3370; J3475; J3480; J3490; J7030; J7050; J7060; Q9963; Q9967; Z7610